=== PATIENT | female | born 1985 | race Caucasian/White ===

== ENCOUNTER → 2017-12-30 | Outpatient (REF) | payer OTHER ==
[2017-12-31 12:01] LABS: THYROID STIMULATING HORMONE 0.926 uIU/ML (0.358-3.740)
[2017-12-31 12:01] LABS: THYROXINE (T4) 8.4 UG/DL (4.5-12.0)
== END ==
LOC: M SFHCCLAY 15:29
DX: Z86.39 Personal history of other endocrine, nutritional and metabolic disease (principal)
CPT/HCPCS: 84443